=== PATIENT | female | born 1995 | race African-American/Black ===

== ENCOUNTER 2019-10-31 16:33 | Day surgery (SDC) | payer OTHER, SELFPAY ==
[2019-10-31 17:21] VITALS: BP 131/68; TEMP 99.1
[2019-10-31 17:22] VITALS: BMI 42.9
[2019-10-31] MEDS ORDERED: hydrALAZINE 20 MG/ML VIAL SLOW IVP PRN (17:39)
[2019-10-31] MEDS ORDERED: Lactated Ringer's 1,000 ML IV SCH (18:00)
[2019-10-31 18:35] LABS: Amnisure Test No Membranes Rupture (No Rupture)
[2019-10-31 18:36] LABS: Amnisure Internal Control QC ACCEPTABLE (ACCEPTABLE)
[2019-10-31 18:37] LABS: Bacteria/HPF 1+ HPF (None Seen); Bilirubin Negative (Negative); Blood, Urine Negative (Negative); Clarity Turbid (Clear); Glucose, Urine (Dipstick) Normal (Negative); Leukocyte Negative Leu/uL (Negative); Nitrite Negative (Negative); Protein, Urine (Dipstick) Negative (Neg-Trace); RBC/HPF 0-3 HPF (0-3); Urine Culture Reflex No No; Urobilinogen Normal mg/dL (Less than 2)
--- NOTE | 2019-10-31 18:46 | PDOC.FPROB ---
FMR OB H&P: HPI - History of Present Illness Chief Complaint: Contractions, cough, shortness of breath Indentification: 24 year old at 25 wks History of Present Illness: 24 year old at 25 wks presents with abdominal tightening occurring every 20 minutes and lasting for approximately 1-2 minutes since last night. She also states that on Sunday she had a gush of clear fluid. She is uncertain if this was urine. Since that time, she has noted some leaking. She states she is having to wear panty liners and is changing them out a few times per day. Uncertain if the fluid is urine. She had an episode of brown vaginal discharge today when wiping around 7 AM. She states that this only happened once and she has not noted it since that time. Patient works at [employer] where there has been a recent COVID outbreak. She states that she does wear proper PPE. Two coworkers recently tested positive. Patient states that she has been tested previously x2 and they have been negative, but she has not been tested in over 2 weeks. She is presenting with a four day history of shortness of breath and cough. She does have a history of asthma and was told this was an asthma exacerbation. She is having to use her inhaler every 4 hours around the clock. It does seem to help some. Patient is supposed to be on Symbicort, but it is too expensive, so she has not been taking it. Patient states that it is becoming increasingly more difficult to walk up stairs. Patient also has dizziness and headache that started two days ago. She endorses general muscle aches. She denies chest pain, fever, chills. 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 Remote history of tobacco use. FMR OB H&P: Medications - Current Home Medications: Medication Instructions Recorded Confirmed Type Vitamin 1 tablet PO DAILY 10/31/19 10/31/19 History metroNIDAZOLE [Flagyl] 500 mg PO BID 7 Days #14 tab 10/31/19 Rx Allergies/Adverse Reactions: Allergies Allergy/AdvReac Type Severity Reaction Status Date / Time No Known Drug Allergies Allergy Verified 10/31/19 17:16 FMR OB H&P: ROS - Review of Systems General: denies: fever/chills, weight/appetite/sleep changes Eyes: denies: vision changes, scotomas ENT: reports: nasal congestion. denies: rhinorrhea, sore throat Cardiovascular: denies: chest pain, palpitation, edema Respiratory: reports: cough, congestion, shortness of breath Gastrointestinal: reports: abdominal pain. denies: nausea, vomiting, diarrhea Genitourinary (Female): reports: vaginal discharge, vaginal pain, contractions, vaginal pressure. denies: dysuria, vaginal bleeding Musculoskeletal: reports: pain, stiffness Neurologic: reports: weakness. denies: numbness, syncope Integumentary: denies: itching, rash, lesions Hematologic/Lymphatic: denies: prolonged or excessive bleeding Psychological: denies: depression, anxiety FMR OB H&P: Vital Signs - Maternal Vital signs: Vital Signs - First Documented Temp Pulse Resp BP Pulse Ox 99.1 F 103 H 20 131/68 98 10/31/19 17:16 10/31/19 17:16 10/31/19 17:16 10/31/19 17:16 10/31/19 17:16 - Heart Tones Baseline: 150 Variability: moderate Acceleration: present Deceleration: absent [place] contractions every: None noted on monitor, patient large, endorses q20 min FMR OB H&P: Physical Exam - Physical Exam General: NAD, awake, alert and oriented HEENT: MMM, grossly normal vision, grossly normal hearing Heart: pulses present Deviation from normal: Mildly tachycardic General: no respiratory distress, no wheezing Abdomen: soft, gravid, non-tender Musculoskeletal: pulses present Neurological: no tremor, no focal deficit Skin: no rash, capillary refill <2 seconds Lymphatic: no unusual bruising or bleeding, no purpura Psychiatric: intact recent and remote memory, good judgement and insight, normal mood and affect - Pelvic Exam Vulva: no masses, no lesions, no discharge Deviation from normal: Moderate amount of white, thin discharge, cervix appeared closed and thick FMR OB H&P: Results - Labs Lab results: Laboratory Results - last 24 hr 10/31/19 10/31/19 18:01 18:18 Urine Color Light-Yellow Urine Clarity Turbid A Urine pH 7.5 Ur Specific [place] 1.016 Urine Protein Negative Urine Glucose (UA) Normal Urine Ketones Negative Urine Blood Negative Urine Nitrite Negative Urine Bilirubin Negative Urine Urobilinogen Normal Ur Leukocyte Esterase Negative Urine RBC 0-3 Urine WBC 4-6 A Ur Squamous Epith Cells 7-10 A Urine Bacteria 1+ A Urine Culture Reflexed No Amnio Swab Test No Membranes Rupture FMR OB H&P: A/P - Problem List (1) Intrauterine Status: Acute Code(s): Z34.90 - ENCNTR FOR SUPRVSN OF NORMAL , UNSP, UNSP TRIMESTER (2) Shortness of breath Status: Acute Code(s): R06.02 - SHORTNESS OF BREATH Disposition: 24 year old at 25 wks IUP, w/ intermittent contractions - at 25 wks - NST reactive for 25 wk - No evidence of contractions on monitor, but patient reports q20 min contractions - FFN collected, was not intended to be sent, but rather held until cervical length done. FFN was ran and noted to be positive. However, FFN is highly sensitive, but not specific. Thus, a positive FFN in the setting of a normal cervical length (3-4 cm) is not predictive of labor. I am reassured by the normal cervical length and lack of regular contractions that this patient is not in PTL. - Cervical length 3-4 cm - UA straight cath appeared to be contaminated with no true evidence of active infection - VP3 positive for BV. Medication sent to pharmacy. GC/CT negative. - s/p 1L LR bolus Leaking of fluid - Sterile speculum exam performed, no pooling of fluid and no expulsion of fluid from cervix with cough. Cervix did appear thick and closed. - Aminsure negative - YANIV 8 cm Shortness of breath - History of asthma, has been using inhaler q4h, but no evidence of persistent cough, wheezing, or increased work of breathing - High risk patient with exposure to COVID, will obtain COVID swab (works at [employer] where there has been COVID outbreak) - We did use proper PPE to evaluate as PUI - Patient has not been using maintenance inhaler due to cost; advised of importance of maintenance inhalers in controlling asthma. Recommend following with PCP to address medication cost and to see what other maintenance inhalers might be covered by insurance. - Recommend self quarantine until COVID test results Dispo: No evidence of PTL. COVID swab pending. Recommend self-quarantine until resulted. Patient does not appear to be in any acute distress and does not appear to be having active asthma exacerbation. She is resting and breathing comfortably. Her O2 sat is appropriate. Shortness of breath appears worse with ambulation and walking up stairs which may be related to , may be associated with asthma, or could represent new COVID infection given her high risk exposure. Patient needs close follow up with PCP. COVID results should be available tomorrow morning. Discussion: Date/Time: 10/31/19 0970 This H&P was discussed with Dr. Singh who agrees with the above documentation and plan. Signature: Marcelina Rodriguez, PGY-3 Addendum - Attending - Attending Attestation Date/Time: 10/31/19 1038 I personally evaluated the patient and discussed the management with Dr. Taylor. I agree with the History, Examination, Assessment and Plan documented above. Dr. Decker notified, pt. to f/u with her next week.
[2019-10-31 19:00] LABS: FFN Internal QC Analyzer PASS (PASS); FFN Internal QC Cassette PASS (PASS); Fetal Fibronectin POSITIVE (Negative)
--- NOTE | 2019-10-31 20:45 | ULT ---
OBSTETRICAL ULTRASOUND: 10/31/19 COMPARISON: None. HISTORY: 24-year-old female with cramping and possible leaking of fluid. TECHNIQUE: Multiplanar malagon scale sonographic imaging of the gravid uterus obtained. FINDINGS: A single intrauterine gestation is present with a breech presentation. heart rate is 153 beats per minute. Amniotic fluid index is approximately 8.3 cm. Cervical length is estimated at 4.3 cm. anatomy is not assessed on this exam. BIOMETRY: BPD 5.9 cm 24 weeks, 1 day HC 11.6 cm 24 weeks, 4 days AC 20.1 cm 24 weeks, 5 days FL 4.7 cm 25 weeks, 5 days Average age based on ultrasound is 24 weeks, 6 days with estimated date of delivery on 02/14/20. Estim ated weight 761 grams +/- 113 grams (41st percentile). IMPRESSION: Single intrauterine gestation as detailed above. presentation is breech. Amniotic fluid index i s 8.3 cm. POS: [facility]
[2019-11-01 16:52] LABS: SARS-CoV-2 MS2 Positive; SARS-CoV-2 N Gene Negative; SARS-CoV-2 S Gene Negative; SARS-CoV-2 orf1ab Negative
[2019-11-02 20:40] LABS: Chlamydia by PCR Not Detected (NotDetected); GC by PCR Not Detected (NotDetected)
== END 2019-10-31 22:03 | disposition home or self-care (01) ==
LOC: L&D/OP 16:33
PROVIDERS: ATTEND Obstetrics & Gynecology
DX: O47.02 False labor before 37 completed weeks of gestation, second trimester (principal); O99.89 Other specified diseases and conditions complicating pregnancy, childbirth and the puerperium; R05 Cough; R06.02 Shortness of breath; N89.8 Other specified noninflammatory disorders of vagina; Z3A.25 25 weeks gestation of pregnancy; Z20.828 Contact with and (suspected) exposure to other viral communicable diseases
CPT/HCPCS: 76815; 81001; 82731; 84112; 87480; 87491; 87510; 87591; 87635; 87660; U0003

== ENCOUNTER 2020-02-01 02:09 | Day surgery (SDC) | payer BC ==
[2020-02-01 02:40] VITALS: BMI 46.0
[2020-02-01 02:45] LABS: Amnisure Test No Membranes Rupture (No Rupture)
[2020-02-01 02:46] LABS: Amnisure Internal Control QC ACCEPTABLE (ACCEPTABLE)
[2020-02-01] MEDS ORDERED: hydrALAZINE 20 MG/ML VIAL SLOW IVP PRN (03:07)
--- NOTE | 2020-02-01 03:17 | PDOC.LDHP ---
Labor and Delivery H&P Chief complaint: contractions, loss of fluid HPI: 24yo @ 38.2 by LMP complicated by intermittent asthma, and A1GDM presents for ctx and concern for SROM. Patients states ctx started about 0600 yesterday and lasted all day till about 2145 at night. Initially [id number], then increased to q4-5min. At about 2210 she had a loss of vaginal fluid, clear , odorless. She then had re-onset of ctx starting at 2300 and persisting till now. Endorses good movement. No vaginal bleeding, change in vaginal discharge, fever/chills, n/v. She endorses urinary frequency and suprapubic pressure. She states the ctx feel like a sharp stabbing pain in BL hips and radiating to the groin. SVE in office on 01/28 was 3cm per pt. Current gestational age (weeks): 38 (38.2) Due date: 02/13/20 Dating criteria: last menstrual period Grav: 2 Para: 1 (1001) OB History Details: First ended in of term female infant. No complications. Current complications: gestational diabetes (A1) Past Medical History: Mild intermittent asthma Surgical history of laproscopic drainage of ovarian cyst in 2019 Current medications: pre-destiny vitamins, other (albuterol HFA prn) Allergies/Adverse Reactions: Allergies Allergy/AdvReac Type Severity Reaction Status Date / Time No Known Drug Allergies Allergy Verified 10/31/19 17:16 Social history: none - Physical Exam Vital signs reviewed and normal: yes General: NAD, resting Heart: RRR Lungs: CTAB Abdomen: other (gravid, normoactive bowel sounds. Mild suprapubic tenderness to palpation) Extremeties: no edema FHT: category 1 (accels, no deccels, baseline 130.) [place] contractions every: 4-6min - Vaginal Exam cm dilated: 3 Effacement: 0% Station: -3 - OB Labs Blood type: A RH: positive HIV: negative HEPSAg: negative 1 hour GCT: positive Urine drug screen: negative Rubella: immune - Plan -: 24yo @ 38.2 by LMP complicated by intermittent asthma, and A1GDM presents for ctx and concern for SROM. #Term labor and SROM r/o - Onset of ctx 0600 yesterday, increased frequency and intensity since that time , now stable since about 2300 - possible LOF at approx 2210 per patient - Cat 1 strip, ctx q4-6min - Spec exam negative for pooling or LOF from cervix with valsalva - Amnisure negative - No change in vaginal discharge, no suspicious appearing discharge on exam - UA clean - SVE 3//high, same as check in office last week per patient - No evidence of SROM, not in active labor - encourage PO hydration - Tylenol for pain #A2GDM - aware #Mild Intermittent asthma - aware PCP: Jeronimo Dispo: Amnisure and spec exam negative. No evidence of SROM. Encourage PO hydration. ctx q 4-6min on monitor. Not in active labor. UA negative. Tylenol for pain. Discussed findings with patient with plan to discharge home with return labor precautions. Patient and partner voiced understanding and agreement of discharge plan, all questions answered. Eager to go home. Addendum - Attending - Attending Attestation Date/Time: 02/01/20 0567 I personally evaluated the patient and discussed the management with Dr. Buck. I agree with the History, Examination, Assessment and Plan documented above.
[2020-02-01 03:41] LABS: Bacteria/HPF None Seen HPF (None Seen); Bilirubin Negative (Negative); Blood, Urine Negative (Negative); Clarity Clear (Clear); Glucose, Urine (Dipstick) Normal (Negative); Ketone, Urine Negative (Negative); Leukocyte Negative Leu/uL (Negative); Nitrite Negative (Negative); Protein, Urine (Dipstick) Negative (Neg-Trace); RBC/HPF 0-3 HPF (0-3); Specific Gravity, Urine 1.009 (1.002-1.036); Squamous Epithelial 0-3 HPF (0-3); Urobilinogen Normal mg/dL (Less than 2); WBC/HPF 0-3 HPF (0-3)
[2020-02-01] MEDS ORDERED: Acetaminophen 325 MG TAB PO SCH (04:00)
== END 2020-02-01 04:15 | disposition home or self-care (01) ==
LOC: L&D/OP 02:09
PROVIDERS: ATTEND Obstetrics & Gynecology
DX: O47.1 False labor at or after 37 completed weeks of gestation (principal); O99.89 Other specified diseases and conditions complicating pregnancy, childbirth and the puerperium; N89.8 Other specified noninflammatory disorders of vagina; O24.410 Gestational diabetes mellitus in pregnancy, diet controlled; O99.513 Diseases of the respiratory system complicating pregnancy, third trimester; J45.909 Unspecified asthma, uncomplicated; Z3A.38 38 weeks gestation of pregnancy
CPT/HCPCS: 81001; 84112; 99283

== ENCOUNTER 2020-08-06 11:14 | Emergency (ER) | payer BC ==
[2020-08-06] MEDS ORDERED: Iopamidol-370 76% 500 ML 1 ML ONE (11:30)
[2020-08-06 11:55] LABS: #Eosinphils 0.2 thou/uL (0.0-0.7); #Lymphocytes 2.8 thou/uL (1.20-3.40); #Monocytes 0.4 thou/uL (0.11-0.59); #Neutrophils 4.6 thou/uL (1.40-6.50); %Basophils 0.6 % (0.0-1.0); %Eosinophils 2.5 % (0.0-10.0); %Lymphocytes 35.1 % (21.0-51.0); %Monocytes 4.9 % (0.0-10.0); Hemoglobin 13.1 g/dL (12.0-16.0); Mean Corpuscular HGB CONC 34.2 g/dL (32.0-36.0); Mean Corpuscular Hemoglobin 30.3 pg (27.0-31.0); Mean Corpuscular Volume 88.6 fL (78.0-98.0); Mean Platelet Volume 7.2 fL (7.4-10.4); Platelet Count 270 thou/uL (130-400); Red Blood Cell (RBC) Count 4.31 mill/uL (4.20-5.40)
[2020-08-06 12:16] LABS: Anion Gap 17 mmol/L (10-20); BUN (Urea Nitrogen) 11 mg/dL (7.0-18.7); Calc. Creatinine Clearance 0 mL/min (70-130); Calcium 8.6 mg/dL (7.8-10.44); Carbon Dioxide 19 mmol/L (22-29); Chloride 104 mmol/L (98-107); Glucose 121 mg/dL (70-105); Potassium 3.7 mmol/L (3.5-5.1); Sodium 136 mmol/L (136-145)
[2020-08-06 12:49] LABS: Bilirubin Negative (Negative); Blood, Urine Negative (Negative); Clarity Clear (Clear); Glucose, Urine (Dipstick) Normal (Negative); Ketone, Urine Negative (Negative); Leukocyte Negative Leu/uL (Negative); Nitrite Negative (Negative); Protein, Urine (Dipstick) Negative (Neg-Trace); Specific Gravity, Urine 1.009 (1.002-1.036); Urobilinogen Normal mg/dL (Less than 2); pH, Urine 6.5 (5.0-9.0)
[2020-08-06 12:52] LABS: Pregnancy Test - Urine (BHCG) Negative (Negative); Pregu Control Background? CLEAR/WHITE (CLR/WHITE); Pregu Control Bar Appear? YES (CONTROL BAR); Specific Gravity 1.009 (1.002-1.036)
[2020-08-10 21:33] LABS: GC by PCR Inconclusive (NotDetected)
[2020-08-10 21:34] LABS: Chlamydia by PCR Inconclusive (NotDetected)
== END 2020-08-06 18:26 | disposition home or self-care (01) ==
LOC: ERS 11:14
DX: K63.89 Other specified diseases of intestine (principal); N76.0 Acute vaginitis; J45.909 Unspecified asthma, uncomplicated; Z79.899 Other long term (current) drug therapy
CPT/HCPCS: 36415; 74177; 80048; 81003; 81025; 85025; 87480; 87491; 87510; 87591; 87660; Q9967

== ENCOUNTER 2021-01-03 21:13 | Emergency (ER) | payer BC ==
[2021-01-03 22:22] LABS: Pregnancy Test - Urine (BHCG) Negative (Negative); Pregu Control Background? CLEAR/WHITE (CLR/WHITE); Pregu Control Bar Appear? YES (CONTROL BAR)
[2021-01-03 22:24] LABS: Bilirubin Negative (Negative); Blood, Urine Negative (Negative); Clarity Clear (Clear); Glucose, Urine (Dipstick) Normal (Negative); Ketone, Urine Negative (Negative); Leukocyte Negative Leu/uL (Negative); Nitrite Negative (Negative); Protein, Urine (Dipstick) Negative (Neg-Trace); Specific Gravity, Urine 1.027 (1.002-1.036); Urobilinogen Normal mg/dL (Less than 2); pH, Urine 6.5 (5.0-9.0)
[2021-01-03 22:26] LABS: Specific Gravity 1.027 (1.002-1.036)
[2021-01-03 22:35] LABS: #Basophils 0.1 thou/uL (0.0-0.2); #Eosinphils 0.3 thou/uL (0.0-0.7); #Monocytes 0.5 thou/uL (0.11-0.59); #Neutrophils 3.9 thou/uL (1.40-6.50); %Basophils 0.7 % (0.0-1.0); %Eosinophils 3.5 % (0.0-10.0); %Lymphocytes 45.5 % (21.0-51.0); %Monocytes 5.7 % (0.0-10.0); %Neutrophils 44.5 % (42.0-75.0); Hemoglobin 13.5 g/dL (12.0-16.0); Mean Corpuscular HGB CONC 34.8 g/dL (32.0-36.0); Mean Corpuscular Hemoglobin 30.7 pg (27.0-31.0); Mean Corpuscular Volume 88.3 fL (78.0-98.0); Mean Platelet Volume 7.5 fL (7.4-10.4); Platelet Count 234 thou/uL (130-400); RBC Distribution Width 12.3 % (11.5-14.5); White Blood Cell (WBC) Count 8.8 thou/uL (4.8-10.8)
[2021-01-03 23:46] LABS: ALT (SGPT) 15 U/L (8-55); AST (SGOT) 21 U/L (5-34); Albumin 3.9 g/dL (3.5-5.0); Alkaline Phosphatase 100 U/L (40-110); Anion Gap 13 mmol/L (10-20); BUN (Urea Nitrogen) 13 mg/dL (7.0-18.7); Bilirubin, Total 0.2 mg/dL (0.2-1.2); Calc. Creatinine Clearance 0 mL/min (70-130); Calcium 9.4 mg/dL (7.8-10.44); Carbon Dioxide 26 mmol/L (22-29); Chloride 103 mmol/L (98-107); Globulin 4.2 g/dL (2.4-3.5); Glucose 89 mg/dL (70-105); Potassium 4.5 mmol/L (3.5-5.1); Protein, Total 8.1 g/dL (6.0-8.3); Sodium 137 mmol/L (136-145)
[2021-01-04] MEDS ORDERED: Ondansetron ODT 4 MG TAB ONE (02:50)
[2021-01-04] MEDS ORDERED: Lidocaine Viscous Sol 2% 15 ml UD Cup ONE (02:50)
[2021-01-04] MEDS ORDERED: Mag-Al 1200 mg/1200 mg/30 ML UDCUP ONE (02:50)
== END 2021-01-04 22:32 | disposition home or self-care (01) ==
LOC: ERS 22:14
DX: R10.13 Epigastric pain (principal); R11.2 Nausea with vomiting, unspecified; R19.7 Diarrhea, unspecified
CPT/HCPCS: 80053; 81003; 81025; 85025; 99283; Q0162

== ENCOUNTER 2021-01-28 04:04 | Emergency (ER) | payer OTHER, BC | END 2021-01-28 05:22 | disposition home or self-care (01) | LOC: ERS 04:04 | DX: S92.312A Displaced fracture of first metatarsal bone, left foot, initial encounter for closed fracture (principal); S92.322A Displaced fracture of second metatarsal bone, left foot, initial encounter for closed fracture; J45.909 Unspecified asthma, uncomplicated; W01.0XXA Fall on same level from slipping, tripping and stumbling without subsequent striking against object, initial encounter | CPT/HCPCS: 28470 ==